=== PATIENT | male | born 2000 | race Caucasian/White ===

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

== ENCOUNTER 2021-11-10 20:00 | Emergency (ER) | payer MEDICAID ==
[~2021-11-10] VITALS: Ht 177.8 cm; Wt 68.0 kg
[2021-11-10 21:08] VITALS: BP 109/67
[2021-11-10] MEDS ORDERED: BACITRACIN ZINC OINT UDPKT TOP ONE (22:15)
[2021-11-10] MEDS ORDERED: LIDOCAINE HCL/PF 1% 10 MG/ML 5ML VIAL INFIL ONE (22:15)
[2021-11-10] MEDS ORDERED: TETANUS, DIPHTHERIA, PERTUSSIS VAC/PF 0.5ML (>10YR OLD) IM ONE (22:15)
[2021-11-10] MEDS ORDERED: DOXY-326 MT ×2 (22:17)
[2021-11-10] MEDS ORDERED: CEFP200T13 MT ×2 (22:17)
[2021-11-10] MEDS ORDERED: LIDOCAINE HCL 1% 20ML VIAL (Pyxis) INJ INFIL NR (22:30)
[2021-11-10] MEDS ORDERED: IBUPROFEN 600MG TABLET PO ONE (23:00)
== END 2021-11-11 00:30 | disposition home or self-care (01) ==
LOC: ER 20:16
DX: S61.412A Laceration without foreign body of left hand, initial encounter (principal); W01.0XXA Fall on same level from slipping, tripping and stumbling without subsequent striking against object, initial encounter; Y93.89 Activity, other specified; Y92.89 Other specified places as the place of occurrence of the external cause; Y99.8 Other external cause status
CPT/HCPCS: 12001; 90471; 90715; 99283; A4217; J3490; Z7610

== ENCOUNTER 2021-11-12 10:54 | Emergency (ER) | payer BC, MEDICAID ==
[~2021-11-12] VITALS: Ht 165.1 cm; Wt 75.0 kg
[2021-11-12 11:15] VITALS: BP 114/61
== END 2021-11-12 13:48 | disposition home or self-care (01) ==
LOC: ER 10:54
DX: Z48.00 Encounter for change or removal of nonsurgical wound dressing (principal)
CPT/HCPCS: 99281

== ENCOUNTER 2022-06-26 22:54 | Emergency (ER) | payer BC, MEDICAID ==
[~2022-06-26] VITALS: Ht 177.8 cm; Wt 73.0 kg
[2022-06-26 23:02] VITALS: BP 123/57
== END 2022-06-27 01:55 | disposition home or self-care (01) ==
LOC: ER 22:54
DX: S30.22XA Contusion of scrotum and testes, initial encounter (principal); W21.89XA Striking against or struck by other sports equipment, initial encounter; Y93.51 Activity, roller skating (inline) and skateboarding; Y92.89 Other specified places as the place of occurrence of the external cause
CPT/HCPCS: 76870; 93976; 99284